=== PATIENT | female | born 1980 | race Two or more races ===

== ENCOUNTER 2020-04-23 00:43 | Emergency (ER) | payer OTHER ==
[~2020-04-23] VITALS: Ht 170.2 cm; Wt 68.0 kg
--- NOTE | 2020-04-23 00:45 | NUR ---
PT [facility] AND PD C/O R HAND LACERATION. MINIMAL BLEEDING NOTED. PT AAOX4, VSS, RESPIRATIONS EVEN AND UNLABORED ON RA W/ NAD NOTED. PT CONNECTED TO THE DIAGRAMMER AND POX.
--- NOTE | 2020-04-23 01:04 | NUR ---
[facility] AT BEDSIDE
[2020-04-23] MEDS ORDERED: TDAP [DIPH/PERTUSSIS/TET] 0.5 ML VIAL IM ONE ×2 (01:05→01:30)
--- NOTE | 2020-04-23 01:08 | NUR ---
[facility] AT BEDSIDE FOR WOUND CARE
[2020-04-23 05:06] VITALS: BP 121/84
--- NOTE | 2020-04-23 05:06 | NUR ---
Patient discharged to home in stable condition. Written and verbal after care instructions given. Patient verbalizes understanding of instruction. Bleeding controlled.
== END 2020-04-23 05:07 | disposition home or self-care (01) ==
LOC: ER 00:45 → EDBD 00:45 → ER 05:07
DX: S61.011A Laceration without foreign body of right thumb without damage to nail, initial encounter (principal); W25.XXXA Contact with sharp glass, initial encounter; Y93.89 Activity, other specified; Y92.89 Other specified places as the place of occurrence of the external cause; Y99.8 Other external cause status
CPT/HCPCS: 12001; 73130; 90471; 90715; 99283; A6403

== ENCOUNTER 2020-04-27 13:07 | Emergency (ER) | payer OTHER ==
[~2020-04-27] VITALS: Ht 167.6 cm; Wt 68.0 kg
[2020-04-27 13:10] VITALS: BP 130/68
--- NOTE | 2020-04-27 13:27 | NUR ---
Patient discharged to home in stable condition. Written and verbal after care instructions given. Patient verbalizes understanding of instruction.
== END 2020-04-27 13:27 | disposition home or self-care (01) ==
LOC: ER 13:11
DX: S61.011D Laceration without foreign body of right thumb without damage to nail, subsequent encounter (principal); W25.XXXD Contact with sharp glass, subsequent encounter

== ENCOUNTER 2021-02-25 23:40 | Emergency (ER) | payer OTHER ==
[~2021-02-25] VITALS: Ht 167.6 cm; Wt 68.0 kg
[2021-02-25] MEDS ORDERED: ONDANSETRON 4 MG TAB.RAPDIS ONE (23:58)
[2021-02-25] MEDS ORDERED: HYDROCODONE/APAP 10/325MG TABLET ONE (23:58)
[2021-02-26] MEDS ORDERED: ONDANSETRON 4 MG TAB.RAPDIS SL ONE
[2021-02-26] MEDS ORDERED: HYDROCODONE/APAP 10/325MG TABLET PO ONE
--- NOTE | 2021-02-26 00:01 | NUR ---
[facility] AT BED SIDE FOR X ISAI
--- NOTE | 2021-02-26 00:01 | NUR ---
[facility] AT BEDSIDE FOR SHOULDER SLING
[2021-02-26] MEDS ORDERED: ONDA4TAB5 PO (00:17)
[2021-02-26] MEDS ORDERED: HYDR-4209 PO (00:17)
--- NOTE | 2021-02-26 00:47 | NUR ---
Patient discharged to home in stable condition. Written and verbal after care instructions given. Patient verbalizes understanding of instruction and RX. Pt ambulated out of ED. VSS.
[2021-02-26 00:49] VITALS: BP 111/76
== END 2021-02-26 00:50 | disposition home or self-care (01) ==
LOC: ER 23:43
DX: S50.01XA Contusion of right elbow, initial encounter (principal); S50.11XA Contusion of right forearm, initial encounter; W22.8XXA Striking against or struck by other objects, initial encounter; Y93.89 Activity, other specified; Y92.89 Other specified places as the place of occurrence of the external cause; Y99.8 Other external cause status
CPT/HCPCS: 29105; 73060; 73080; 73090; 99284; Q0162

== ENCOUNTER 2023-01-05 21:05 | Emergency (ER) | payer OTHER ==
[~2023-01-05] VITALS: Ht 167.6 cm; Wt 68.0 kg
[~2023-01-05 21:05] MED LIST: HYDR-4209 PO; ONDA4TAB5 PO
--- NOTE | 2023-01-05 22:57 | NUR ---
[facility] FOR RAPID INFLUENZA, RAPID STREP AND COVID19 SENT TO [facility]
[2023-01-06 00:35] VITALS: BP 140/80
--- NOTE | 2023-01-06 00:35 | NUR ---
Patient discharged to home in stable condition. Written and verbal after care instructions given. Patient verbalizes understanding of instruction.
== END 2023-01-06 00:36 | disposition home or self-care (01) ==
LOC: ER 21:07
DX: J06.9 Acute upper respiratory infection, unspecified (principal); Z79.899 Other long term (current) drug therapy
CPT/HCPCS: 86403-TC